=== PATIENT | female | born 1930 | race Caucasian/White ===

== ENCOUNTER 2019-05-17 12:16 | Emergency (ER) | payer MEDICARE, OTHER ==
[~2019-05-17] VITALS: Ht 162.6 cm; Wt 70.0 kg
[~2019-05-17 12:16] MED LIST: AMLO2.5T21 PO; ASPI-41 PO; LEVO25TA2 PO; PANT40TA4 PO
[2019-05-17 12:21] VITALS: BP 148/60
[2019-05-17] MEDS ORDERED: normal saline 1000ML IV soln IVB ONE (13:15)
[2019-05-17 13:56] LABS: BASOPHILS # (AUTO) 0.1 X10'3 (0-0.2); BASOPHILS % (AUTO) 0.9 % (0-1); EOSINOPHILS # (AUTO) 0.2 X10'3 (0-0.9); EOSINOPHILS % (AUTO) 2.4 % (0-6); HEMATOCRIT 37.2 % (35.0-45.0); HEMOGLOBIN 12.9 g/dl (12.0-16.0); LYMPHOCYTES # (AUTO) 1.5 X10'3 (1.1-4.8); MEAN CORPUSCULAR HEMOGLOBIN 30.7 PG (27.0-31.0); MEAN CORPUSCULAR HGB CONC 34.7 g/dL (33.0-36.5); MEAN CORPUSCULAR VOLUME 88.6 FL (78-98); MEAN PLATELET VOLUME 7.4 FL (7.4-10.4); MONOCYTES # (AUTO) 0.6 X10'3 (0-0.9); MONOCYTES % (AUTO) 7.4 % (2-12); NEUTROPHILS # (AUTO) 5.9 X10'3 (1.8-7.7); NEUTROPHILS % (AUTO) 71.3 % (42-75); PLATELET COUNT 271 X10'3 (140-440); RED CELL DISTRIBUTION WIDTH 12.6 % (11.5-14.5); WHITE BLOOD COUNT 8.3 X10'3 (4.5-11.0)
[2019-05-17 14:10] LABS: ALANINE AMINOTRANSFERASE 20 U/L (12-78); ALBUMIN/GLOBULIN RATIO 1.1 (1.1-1.5); ALKALINE PHOSPHATASE 80 IU/L (46-116); ANION GAP 10 (8-16); ASPARTATE AMINO TRANSFERASE 24 U/L (10-37); BILIRUBIN,TOTAL 1.4 MG/DL (0.1-1.0); BLOOD UREA NITROGEN 26 MG/DL (7-18); BUN/CREATININE RATIO 14.2 (6.6-38.0); CALCIUM 9.4 MG/DL (8.5-10.1); CHLORIDE 100 MMOL/L (99-107); CREATININE 1.83 MG/DL (0.40-0.90); GLUCOSE 93 MG/DL (70-104); POTASSIUM 3.8 MMOL/L (3.5-5.1); SODIUM 138 MMOL/L (135-145); TOTAL CARBON DIOXIDE 28.1 MMOL/L (24-32); TOTAL PROTEIN 7.5 G/DL (6.4-8.2); eGFR 26 ML/MIN
[2019-05-17 14:47] LABS: CLARITY,URINE SLIGHTLY CLOUDY (Clear); COLOR,URINE YELLOW (Yellow); GLUCOSE, URINE NEGATIVE (Neg); KETONES,URINE NEGATIVE (Neg); LEUKOCYTE ESTERASE ,URINE SMALL (Neg); NITRITES, URINE NEGATIVE (Neg); OCCULT BLOOD,URINE NEGATIVE (Neg); PROTEIN,URINE NEGATIVE (Neg); UROBILINOGEN,URINE 0.2 E.U/dL (0.2-1.0)
--- NOTE | 2019-05-17 14:47 | NUR ---
Lab called regarding stool sample. Stated it was to formed to perform Cdif test. Simone [place] aware.
[2019-05-17 14:52] LABS: UA COLLECTION TYPE CLN CATCH MIDSTREAM
[2019-05-17 14:54] LABS: BACTERIA,URINE FEW /HPF (Neg); MUCUS STRANDS FEW /LPF (Neg); RBC,URINE NONE SEEN /HPF (0-2); SQUAMOUS EPITHELIAL CELL,UR MANY /LPF (FEW); WBC,URINE 0-4 /HPF (0-4)
[2019-05-17] MEDS ORDERED: DICY10CA88 PO (14:59)
[2019-05-17] MEDS ORDERED: dicyclomine 10 MG capsule PO ONE (15:00)
== END 2019-05-17 15:15 | disposition home or self-care (01) ==
LOC: ER 12:16
DX: R19.7 Diarrhea, unspecified (principal); E03.9 Hypothyroidism, unspecified; G89.29 Other chronic pain; Z88.6 Allergy status to analgesic agent; Z79.899 Other long term (current) drug therapy; Z79.82 Long term (current) use of aspirin; Z90.49 Acquired absence of other specified parts of digestive tract; Z90.710 Acquired absence of both cervix and uterus
CPT/HCPCS: 36415; 80053; 81001; 85025; 87045; 87046; 99283; J7040; 96360

== ENCOUNTER 2021-08-07 07:19 | Day surgery (SDC) | payer MEDICARE, OTHER ==
[2021-07-31 16:50] LABS: BASOPHILS # (AUTO) 0.1 X10'3 (0-0.2); BASOPHILS % (AUTO) 1.2 % (0-1); EOSINOPHILS # (AUTO) 0.2 X10'3 (0-0.9); EOSINOPHILS % (AUTO) 3.5 % (0-6); LYMPHOCYTES # (AUTO) 1.9 X10'3 (1.1-4.8); LYMPHOCYTES % (AUTO) 32.3 % (21-51); MEAN CORPUSCULAR HEMOGLOBIN 30.7 PG (27.0-31.0); MEAN CORPUSCULAR HGB CONC 34.9 g/dL (33.0-36.5); MEAN CORPUSCULAR VOLUME 87.9 FL (78-98); MEAN PLATELET VOLUME 7.6 FL (7.4-10.4); MONOCYTES # (AUTO) 0.5 X10'3 (0-0.9); MONOCYTES % (AUTO) 8.6 % (2-12); NEUTROPHILS # (AUTO) 3.2 X10'3 (1.8-7.7); NEUTROPHILS % (AUTO) 54.4 % (42-75); PRE OP HEMATOCRIT 34.3 % (35.0-45.0); PRE OP PLATELET COUNT 268 X10'3 (140-440); RED CELL DISTRIBUTION WIDTH 13.6 % (11.5-14.5)
[2021-07-31 17:25] LABS: ALBUMIN 4.1 G/DL (3.4-5.0); ALBUMIN/GLOBULIN RATIO 1.2 (1.1-1.5); ALKALINE PHOSPHATASE 84 IU/L (46-116); BLOOD UREA NITROGEN 31 MG/DL (7-18); BUN/CREATININE RATIO 20.7 (6.6-38.0); CALCIUM 9.1 MG/DL (8.5-10.1); CHLORIDE 104 MMOL/L (99-107); PRE OP ALT 35 U/L (30-65); PRE OP ANION GAP 9 (8-16); PRE OP AST 25 U/L (10-37); PRE OP GLUCOSE 95 MG/DL (70-104); PRE OP POTASSIUM 3.5 MMOL/L (3.4-5.1); PRE OP SODIUM 140 MMOL/L (135-145); TOTAL CARBON DIOXIDE 26.7 MMOL/L (24-32); TOTAL PROTEIN 7.4 G/DL (6.4-8.2); eGFR 33 ML/MIN
[~2021-08-07] VITALS: Ht 157.5 cm; Wt 59.0 kg
[2021-08-07] VITALS (7 sets, daily range): BP systolic 140–165; BP diastolic 61–78
[~2021-08-07 07:19] MED LIST changes: -AMLO2.5T21 PO; -ASPI-41 PO; +BUPIVAcaine 0.5% inj/PF 30 ML ONE; +LOSA1TAB41 PO; -PANT40TA4 PO; +PANT40TA54 PO; +TRAM50TA2 PO; +cefazolin/dext.iso 2gm/50ml IV ONE; +famotidine 20mg tablet PO ONE; +ringers solution, lacted 1,000 ML IV SCH
[2021-08-07] MEDS ORDERED: morphine 2 MG/ML inj. syringe IV PRN (08:15)
[2021-08-07] MEDS ORDERED: hydrALAZINE 20mg/ml inj. IV PRN (08:15)
[2021-08-07] MEDS ORDERED: morphine 4 MG/ML inj SYRINge IV PRN (08:15)
[2021-08-07] MEDS ORDERED: ringers solution, lacted 1,000 ML IV SCH (08:15)
[2021-08-07] MEDS ORDERED: ondansetron/PF 4mg/2ml inj IV PRN (08:15)
[2021-08-07] MEDS ORDERED: labetalol 20mg/4ml (5mg/ml) syringe IV PRN (08:15)
[2021-08-07] MEDS ORDERED: fentaNYL/PF 50MCG/1 ML 2ML syringe IV PRN ×2 (08:15)
[2021-08-07] MEDS ORDERED: BUPIVAcaine 0.5% inj/PF 30 ml vial IJ ONE (10:00)
--- NOTE | 2021-08-07 11:19 | NUR ---
Received from OR via kari, accompanied by Anesthesiologist Haseeb and report given by Anesthesiolgist. VS WNL, pt responsive but sleeepy, RA sats greater than 95%, 20G left wrist, right elbow wrapped with dresseing and kingsley wrap good cap refill distally. No pain ice pack applied to elbow.
--- NOTE | 2021-08-07 12:39 | NUR ---
Pt discharged to vehicle without incident, dressing CDI, IV dc'd and pt/daughter verbalised understanding of all DC instructions. All belongings returned to patient. Pt already has pain meds at home.
== END 2021-08-07 12:39 | disposition home or self-care (01) ==
LOC: PAS 07:19
PROVIDERS: ATTEND Orthopaedic Surgery Hand Surgery
DX: G56.21 Lesion of ulnar nerve, right upper limb (principal); M41.9 Scoliosis, unspecified; K21.9 Gastro-esophageal reflux disease without esophagitis; E03.9 Hypothyroidism, unspecified; M19.071 Primary osteoarthritis, right ankle and foot; Z79.899 Other long term (current) drug therapy; Z20.822 Contact with and (suspected) exposure to COVID-19; Z90.710 Acquired absence of both cervix and uterus; Z72.89 Other problems related to lifestyle; Z90.49 Acquired absence of other specified parts of digestive tract; Z86.73 Personal history of transient ischemic attack (TIA), and cerebral infarction without residual deficits
CPT/HCPCS: 36415; 64718; 80053; 82948; 85025; 93005; J0690; J2405; J7030; J7120; S0020; U0003; U0005; Z7506; Z7512; A4215; A6449